=== PATIENT | male | born 1995 | race Caucasian/White ===

== ENCOUNTER 2018-08-04 08:44 | Emergency (ER) | payer BC ==
[2018-08-04] MEDS ORDERED: Aspirin 81 MG Tab.Chew PO ONE (08:45)
[2018-08-04] MEDS ORDERED: Pantoprazole 80 MG in Sodium Chloride 0.9% 100 ML IVPUSH ONE (08:45)
[2018-08-04] MEDS ORDERED: Alum Hydrox/Mag Hydrox/Simeth 15 ML, Metoclopramide 5 MG, Lidocaine 2% 5 ML PO ONE ×3 (08:48)
--- NOTE | 2018-08-04 08:48 | EDM.PDOC ---
ED HPI GENERAL MEDICAL PROBLEM - General Chief Complaint: Chest Pain Stated Complaint: CHEST PAIN Time Seen by Provider: 08/04/18 08:47 Source of Information: Reports: Patient - History of Present Illness INITIAL COMMENTS - FREE TEXT/NARRATIVE: HISTORY AND PHYSICAL: History of present illness: [Patient presents with epigastric to substernal chest discomfort 2 out of 10 nonradiating not associated with shortness of breath or diaphoresis no radiation arm neck or jaw, pain present for 2 days Generally healthy young male with no fever nausea vomiting chills sweats no shortness breath headache dizziness palpitation no bowel or urine symptoms Patient does have a history of anxiety, he relates that he has been feeling anxious about his health recently atenolol lifting weights recently dropped a bar on his chest however he has not done so in the last week or 2 but is been anxious concerning this event, he has been somewhat compulsively checking his blood pressure and heart rate this morning which has been 140s over 80s slightly elevated on arrival he states his heart rate is been around 100 which has increased his anxiety he denies any supplements with caffeine or testosterone etc. although he does use CoQ10 and multivitamins, patient is routinely bench pressing 225 pounds without any chest pain shortness of breath diaphoresis or dizziness h/o cholecystectomy ] Review of systems: As per history of present illness and below otherwise all systems reviewed and negative. Past medical history: As per history of present illness and as reviewed below otherwise noncontributory. Surgical history: As per history of present illness and as reviewed below otherwise noncontributory. Social history: No reported history of drug or alcohol abuse. Family history: As per history of present illness and as reviewed below otherwise noncontributory. Physical exam: HEENT: Atraumatic, normocephalic, pupils reactive, negative for conjunctival pallor or scleral icterus, mucous membranes moist, throat clear, neck supple, nontender, trachea midline. Lungs: Clear to auscultation, breath sounds equal bilaterally, chest nontender. Heart: S1S2, regular, negative for clicks, rubs, or JVD. Abdomen: Soft, nondistended, nontender. Negative for masses or hepatosplenomegaly. Negative for costovertebral tenderness. Pelvis: Stable nontender. Genitourinary: Deferred. Rectal: Deferred. Extremities: Atraumatic, negative for cords or calf pain. Neurovascular unremarkable. Neuro: Awake, alert, oriented. Cranial nerves II through XII unremarkable. Cerebellum unremarkable. Motor and sensory unremarkable throughout. Exam nonfocal. Diagnostics: [CBC CMP troponin UA EKG Chest 1 view ] Therapeutics: [Aspirin 324 mg chewable Normal saline Proton X Impression: Anxiety about health ] Definitive disposition and diagnosis as appropriate pending reevaluation and review of above. Chest Pain Score (Numeric/FACES): 6 - Related Data Allergies Allergy/AdvReac Type Severity Reaction Status Date / Time Sulfa (Sulfonamide Allergy Cannot Verified 08/04/18 08:46 Antibiotics) Remember Home Meds: Home Meds . [No Known Home Meds] 08/04/18 [History] ED ROS GENERAL - Review of Systems Review Of Systems: See Below ED EXAM, GENERAL - Physical Exam Exam: See Below Course - Vital Signs Last Recorded V/S: Last Vital Signs Temp 97.3 F 08/04/18 08:46 Pulse 103 H 08/04/18 08:46 Resp 18 08/04/18 08:46 BP 176/105 H 08/04/18 08:46 Pulse Ox 98 08/04/18 08:46 - Orders/Labs/Meds Orders: Active Orders 24 hr Category Date Time Status EKG Documentation Completion [RC] STAT Care 08/04/18 08:45 Active Chest 1V Frontal [CR] Stat Exams 08/04/18 08:45 Taken UA RFX SHRUTHI AND CULT IF INDIC [URIN] Stat Lab 08/04/18 08:45 Ordered Pantoprazole [ProTONIX IV] 80 mg Med 08/04/18 09:15 Active Sodium Chloride 0.9% [Normal Saline] 20 ml IV Q24H Medication Orders Pantoprazole Sodium 80 mg/ (Sodium Chloride) 20 mls @ 400 mls/hr IV Q24H NNAMDI Labs: Laboratory Tests 08/04/18 08/04/18 Range/Units 08:42 08:42 WBC 7.46 (4.0-11.0) K/uL RBC 5.34 (4.50-5.90) M/uL Hgb 16.4 (13.0-17.0) g/dL Hct 46.4 (38.0-50.0) % MCV 86.9 (80.0-98.0) fL MCH 30.7 (27.0-32.0) pg MCHC 35.3 (31.0-37.0) g/dL RDW Std Deviation 41.2 (28.0-62.0) fl RDW Coeff of Arpan 13 (11.0-15.0) % Plt Count 251 (150-400) K/uL MPV 9.70 (7.40-12.00) fL Neut % (Auto) 58.7 (48.0-80.0) % Lymph % (Auto) 31.9 (16.0-40.0) % Sandoval % (Auto) 7.6 (0.0-15.0) % Eos % (Auto) 1.5 (0.0-7.0) % Baso % (Auto) 0.3 (0.0-1.5) % Neut # (Auto) 4.4 (1.4-5.7) K/uL Lymph # (Auto) 2.4 (0.6-2.4) K/uL Sandoval # (Auto) 0.6 (0.0-0.8) K/uL Eos # (Auto) 0.1 (0.0-0.7) K/uL Baso # (Auto) 0.0 (0.0-0.1) K/uL Nucleated RBC % 0.0 /100WBC Nucleated RBCs # 0 K/uL Sodium 136 (136-148) mmol/L Potassium 3.7 (3.5-5.1) mmol/L Chloride 103 (98-107) mmol/L Carbon Dioxide 25.9 (21.0-32.0) mmol/L BUN 24 H (7.0-18.0) mg/dL Creatinine 1.1 (0.8-1.3) mg/dL Est Cr Clr Drug Dosing 108.76 mL/min Estimated GFR (MDRD) > 60.0 ml/min Glucose 94 (74-106) mg/dL Calcium 9.2 (8.5-10.1) mg/dL Total Bilirubin 0.6 (0.2-1.0) mg/dL AST 27 (15-37) IU/L ALT 45 (14-63) IU/L Alkaline Phosphatase 91 (46-116) U/L Troponin I < 0.050 (0.000-0.056) ng/mL Total Protein 8.0 (6.4-8.2) g/dL Albumin 4.4 (3.4-5.0) g/dL Globulin 3.6 (2.6-4.0) g/dL Albumin/Globulin Ratio 1.2 (0.9-1.6) Lipase 77 (73-393) U/L Meds: Medications Generic Name Dose Route Start Last Admin Trade Name Garrett PRN Reason Stop Dose Admin Pantoprazole Sodium 80 mg/ 20 mls @ 400 mls/hr 08/04/18 09:15 Sodium Chloride IV Q24H NNAMDI Discontinued Medications Generic Name Dose Route Start Last Admin Trade Name Freq PRN Reason Stop Dose Admin Aspirin 324 mg 08/04/18 08:45 08/04/18 09:06 Aspirin PO 08/04/18 08:46 324 mg ONETIME ONE Administration Al Hydroxide/Mg Hydroxide 15 0 ml 08/04/18 08:48 08/04/18 09:06 ml/ Metoclopramide HCl 5 mg/ PO 08/04/18 08:49 1 each Lidocaine HCl 5 ml ONETIME ONE Administration Sterile Water Confirm 08/04/18 08:58 Sterile Water For Injection Administered 08/04/18 08:59 Dose 20 mls @ as directed .ROUTE .STK-MED ONE Pantoprazole Sodium Confirm 08/04/18 08:52 08/04/18 09:06 Protonix Iv Administered 08/04/18 08:53 80 mg Dose Administration 80 mg .ROUTE .STK-MED ONE Sterile Water 20 ml 08/04/18 08:57 08/04/18 09:06 Sterile Water For Injection INJECT 08/04/18 08:58 20 ml STAT ONE Administration Departure - Departure Time of Disposition: 09:20 Disposition: Home, Self-Care 01 Condition: Good Clinical Impression: Anxiety about health - Discharge Information Forms: ED Department Discharge Additional Instructions: The following information is given to patients seen in the emergency department who are being discharged to home. This information is to outline your options for follow-up care. We provide all patients seen in our emergency department with a follow-up referral. The need for follow-up, as well as the timing and circumstances, are variable depending upon the specifics of your emergency department visit. If you don't have a primary care physician on staff, we will provide you with a referral. We always advise you to contact your personal physician following an emergency department visit to inform them of the circumstance of the visit and for follow-up with them and/or the need for any referrals to a consulting specialist. The emergency department will also refer you to a specialist when appropriate. This referral assures that you have the opportunity for follow-up care with a specialist. All of these measure are taken in an effort to provide you with optimal care, which includes your follow-up. Under all circumstances we always encourage you to contact your private physician who remains a resource for coordinating your care. When calling for follow-up care, please make the office aware that this follow-up is from your recent emergency room visit. If for any reason you are refused follow-up, please contact the [facility] emergency department at and asked to speak to the emergency department charge nurse. - My Orders Last 24 Hours: My Active Orders 08/04/18 08:45 EKG Documentation Completion [RC] STAT Chest 1V Frontal [CR] Stat UA RFX SHRUTHI AND CULT IF INDIC [URIN] Stat 08/04/18 09:15 Pantoprazole [ProTONIX IV] 80 mg Sodium Chloride 0.9% [Normal Saline] 20 ml IV Q24H - Assessment/Plan Last 24 Hours: My Active Orders 08/04/18 08:45 EKG Documentation Completion [RC] STAT Chest 1V Frontal [CR] Stat UA RFX SHRUTHI AND CULT IF INDIC [URIN] Stat 08/04/18 09:15 Pantoprazole [ProTONIX IV] 80 mg Sodium Chloride 0.9% [Normal Saline] 20 ml IV Q24H
[2018-08-04] MEDS ORDERED: Water For Injection, Sterile 20 ML SDV INJECT ONE (08:57)
[2018-08-04] MEDS ORDERED: Water For Injection, Sterile 20 ML ONE (08:58)
[2018-08-04] MEDS: Pantoprazole 40 MG Vial ONE ×2 (09:06→09:26)
[2018-08-04 09:14] LABS: CHLORIDE,CL 103 mmol/L (98-107); SODIUM,NA 136 mmol/L (136-148)
[2018-08-04] MEDS ORDERED: Pantoprazole 80 MG in Sodium Chloride 0.9% 20 ML IV SCH (09:15)
--- NOTE | 2018-08-04 09:25 | CR ---
INDICATION: Chest pain COMPARISON: none TECHNIQUE: Portable AP erect chest performed at 8:57 a.m. FINDINGS: The lungs are clear. There is no evidence of pneumothorax. The heart, mediastinum and pulmonary vessels are of normal size. There is no evidence of pleural fluid. IMPRESSION: Negative chest. Dictated by True Graves MD @ Aug 04 2018 9:23AM Signed by Dr. True Graves @ Aug 04 2018 9:24AM
== END 2018-08-04 09:45 | disposition home or self-care (01) ==
LOC: MW.ED 08:44
DX: F41.9 Anxiety disorder, unspecified (principal); Z88.2 Allergy status to sulfonamides
CPT/HCPCS: 71045; 80053; 83690; 84484; 85025; 93005; 96374; 99285; A9270; C9113; 99283